=== PATIENT | female | born 2000 | race Hispanic/Latino ===

== ENCOUNTER 2018-07-22 10:14 | Emergency (ER) | payer SELFPAY ==
[~2018-07-22] VITALS: Ht 165.1 cm; Wt 63.0 kg
== END 2018-07-22 10:32 | disposition home or self-care (01) ==
LOC: ED 10:14
DX: R35.0 Frequency of micturition (principal)

== ENCOUNTER 2020-07-05 18:22 | Inpatient (IN) | payer OTHER ==
[~2020-07-05] VITALS: Ht 162.6 cm; Wt 69.9 kg
[~2020-07-05 18:22] MED LIST: VITAFOL-OB+DHA1 EACH PO; iron
--- NOTE | 2020-07-05 20:20 | PR ---
[facility] [address] [facility] [place], [place] [address] Signed Progress Notes IP Datetime Report Generated by CPHam: 07/05/2020 20:20 PROGRESS NOTES: [id number] Impression: Normal Progression of Labor Procedures: Sterile Vag Exam Plan: Continue Present Management VITAL SIGNS: [id number] Vital Signs: Reviewed; Within Normal Limits EXAM: [id number] Dilatation: 8.0 Effacement: 100 Station: -2 Contractions: q 4 to 6 min MEMBRANES: [id number] Comments: Progressing. Will continue. FETUS A: [id number] FHR Baseline: 150 Variability: Moderate 6-25bpm Accelerations: 10X10 Decelerations: Variable FHR Category: Category II Presentation: Vertex Comments on Fetus A: overall reassuring FETUS B: [id number] Signing Physician: Rivka Black MD Copies: ~ *Electronically Signed* 07/05/202019 RIVKA BLACK MD PATIENT NAME: LORE WEINSTEIN PROGRESS NOTE DATE OF : [birth year] PHYSICIAN: RIVKA BLACK MD RPT #: [id number] REPORT IS CONFIDENTIAL AND NOT TO BE RELEASED WITHOUT AUTHORIZATION
[2020-07-06] MEDS ORDERED: PRILOSEC OTC20 MG PO (06:12)
--- NOTE | 2020-07-06 08:52 | PR ---
[facility] [address] [facility] [place], [place] [address] Signed PP Progress Notes Datetime Report Generated by CPN: 07/06/2020 08:52 SUBJECTIVE: [id number] Pain: Within Normal Limits Vital Signs: [id number] Vital Signs: Reviewed; Within Normal Limits EXAM: Ongoing Cardiovascular: Not Done Respiratory: Not Done Abdomen/Uterus: Abnormal Lochia: Normal Vulva/Perineum: Not Done Breasts: Not Done CVA Tenderness: Not Done Extremities: Normal Incision: Not Applicable Progress: Normal Exam Comments: Fundus firm, NT @ U-1. H/H 10.2/32.1, WBC 17.3, plat 273k IMPRESSION/PLAN/PROCEDURES: [id number] Impression: Normal Progression Plan: Continue Present Management Procedures: None Progress Notes: Doing well. Bleeding is doing much better. Signing Physician: Rivka Black MD Copies: ~ *Electronically Signed* 07/06/20 0852 RIVKA BLACK MD PATIENT NAME: LORE WEINSTEIN PROGRESS NOTE DATE OF : 98 PHYSICIAN: RIVKA BLACK MD RPT #: [id number] REPORT IS CONFIDENTIAL AND NOT TO BE RELEASED WITHOUT AUTHORIZATION
--- NOTE | 2020-07-07 07:51 | PR ---
[facility] [address] [facility] [place] [address] Signed PP Progress Notes Datetime Report Generated by CPN: 07/07/2020 07:51 SUBJECTIVE: [id number] Pain: Within Normal Limits Vital Signs: [id number] Vital Signs: Reviewed; Within Normal Limits EXAM: Ongoing Cardiovascular: Not Done Respiratory: Not Done Abdomen/Uterus: Abnormal Lochia: Normal Vulva/Perineum: Not Done Breasts: Not Done CVA Tenderness: Not Done Extremities: Normal Incision: Not Applicable Progress: Normal Exam Comments: Fundus firm, NT @ U-2. IMPRESSION/PLAN/PROCEDURES: [id number] Impression: Normal Progression Plan: Discharge Procedures: None Progress Notes: Doing well. She is ready for D/C. Signing Physician: Rivka Black MD Copies: ~ *Electronically Signed* 07/07/20 0751 RIVKA BLACK MD PATIENT NAME: LORE WEINSTEIN PROGRESS NOTE DATE OF : 98 PHYSICIAN: RIVKA BLACK MD RPT #: [id number] REPORT IS CONFIDENTIAL AND NOT TO BE RELEASED WITHOUT AUTHORIZATION
== END 2020-07-07 12:20 | disposition home or self-care (01) | DRG 807 ==
LOC: FBCO → FBC 18:35 → FBCO 07-17 11:10
PROVIDERS: ADMIT Obstetrics & Gynecology
PROC: 10E0XZZ Delivery of Products of Conception, External Approach (ICD-10-PCS; principal; 2020-07-05)
PROC: 10907ZC Drainage of Amniotic Fluid, Therapeutic from Products of Conception, Via Natural or Artificial Opening (ICD-10-PCS; 2020-07-05)
DX: O76 Abnormality in fetal heart rate and rhythm complicating labor and delivery (principal); Z37.0 Single live birth; O69.3XX0 Labor and delivery complicated by short cord, not applicable or unspecified; Z3A.38 38 weeks gestation of pregnancy
CPT/HCPCS: 36415; 85027; A9270; J2210; J2590

== ENCOUNTER 2021-11-22 22:25 | Emergency (ER) | payer OTHER, BC ==
[~2021-11-22] VITALS: Ht 162.6 cm; Wt 63.5 kg
[~2021-11-22 22:25] MED LIST changes: +PRILOSEC OTC20 MG PO
== END 2021-11-23 01:25 | disposition home or self-care (01) ==
LOC: ED 22:25
DX: O20.9 Hemorrhage in early pregnancy, unspecified (principal); Z3A.18 18 weeks gestation of pregnancy
CPT/HCPCS: 76815; 80053; 81001; 84702; 85025; 86900; 99284-25

== ENCOUNTER 2022-04-13 04:26 | Inpatient (IN) | payer BC, OTHER ==
[~2022-04-13] VITALS: Ht 160 cm; Wt 73.0 kg
--- NOTE | 2022-04-13 05:12 | NUR ---
COVID SWAB DONE TO BOTH [facility]ES AND SENT TO IN HOUSE LAB.
--- NOTE | 2022-04-14 09:59 | PR ---
[facility] [address] [facility] [place] [address] Signed PP Progress Notes Datetime Report Generated by CPHam: 04/14/2022 09:59 SUBJECTIVE: [id number] Pain: Within Normal Limits Vital Signs: [id number] Vital Signs: Reviewed; Within Normal Limits Cardiovascular: Not Done Respiratory: Not Done Abdomen/Uterus: Abnormal Lochia: Normal Vulva/Perineum: Not Done Breasts: Not Done CVA Tenderness: Not Done Extremities: Normal Incision: Not Applicable Progress: Abnormal Exam Comments: Fundus firm, NT @ U-2. H/H 10/30.4, WBC 9.7, plat 222k IMPRESSION/PLAN/PROCEDURES: [id number] Impression: Normal Progression Plan: Continue Present Management Procedures: None Progress Notes: Doing well. Will continue observation due to GBS status. Signing Physician: Rivka Black MD Copies: ~ *Electronically Signed* 04/14/2259 RIVKA BLACK MD PATIENT NAME: LORE WEINSTEIN PROGRESS NOTE DATE OF : 98 PHYSICIAN: RIVKA BLACK MD RPT #: [id number] REPORT IS CONFIDENTIAL AND NOT TO BE RELEASED WITHOUT AUTHORIZATION
--- NOTE | 2022-04-15 06:51 | PR ---
[facility] [address] [facility] [place], [place] [address] Signed PP Progress Notes Datetime Report Generated by CPN: 04/15/2022 06:51 SUBJECTIVE: [id number] Pain: Within Normal Limits Vital Signs: [id number] Vital Signs: Reviewed; Within Normal Limits Cardiovascular: Not Done Respiratory: Not Done Abdomen/Uterus: Abnormal Lochia: Normal Vulva/Perineum: Not Done Breasts: Not Done CVA Tenderness: Not Done Extremities: Normal Incision: Not Applicable Progress: Normal Exam Comments: Fundus firm, NT @ U-2. IMPRESSION/PLAN/PROCEDURES: [id number] Impression: Normal Progression Plan: Discharge Procedures: None Progress Notes: Doing well. She is ready for D/C. Signing Physician: Rivka Black MD Copies: ~ *Electronically Signed* 04/15/22 0651 RIVKA BLACK MD PATIENT NAME: LORE WEINSTEIN PROGRESS NOTE DATE OF : 98 PHYSICIAN: RIVKA BLACK MD RPT #: [id number] REPORT IS CONFIDENTIAL AND NOT TO BE RELEASED WITHOUT AUTHORIZATION
== END 2022-04-15 11:31 | disposition home or self-care (01) | DRG 807 ==
LOC: FBCO 04:26 → FBC 04:40
PROVIDERS: ADMIT Obstetrics & Gynecology; ATTEND Obstetrics & Gynecology
PROC: 10E0XZZ Delivery of Products of Conception, External Approach (ICD-10-PCS; principal; 2022-04-13)
PROC: 10907ZC Drainage of Amniotic Fluid, Therapeutic from Products of Conception, Via Natural or Artificial Opening (ICD-10-PCS; 2022-04-13)
DX: O62.3 Precipitate labor (principal); Z37.0 Single live birth; Z3A.39 39 weeks gestation of pregnancy; Z67.40 Type O blood, Rh positive; O99.824 Streptococcus B carrier state complicating childbirth; Z20.822 Contact with and (suspected) exposure to COVID-19
CPT/HCPCS: 36415; 85027; 86850; 86900; 86901; 87502; A9270; C9803; J2210; J2540; J2590; J7121; U0003